=== PATIENT | female | born 1970 | race African-American/Black ===

== ENCOUNTER 2017-07-17 11:15 | Inpatient (IN) | payer OTHER ==
[2017-07-17 12:13] VITALS: BMI 30.5
--- NOTE | 2017-07-18 06:06 | HP ---
DATE OF ADMISSION: 07/18/2017 CHIEF COMPLAINT: Menorrhagia to anemia. HISTORY OF PRESENT ILLNESS: This is a 47-year-old G4, P4 with menorrhagia to anemia, history of mul tiple transfusions over the last 12 years, has never been treated for menorrhagia; however, only jose e been seen in the ER. She recently was started on Lysteda as well as referred to Hematology for IV iron and her recent hemoglobin was 13 up from 5 upon initial assessment on this and the patient sta tatianna she feels much better and desires definitive management with hysterectomy. She also desires ova frank removal secondary to additional problems from the ovaries. This patient has had problems in e past. CURRENT MEDICATIONS: Ferrous sulfate 325 mg p.o. t.i.d., Lysteda 650 mg 2 p.o. t.i.d. p.r.n., Valtr ex 500 mg 1 p.o. daily. PAST MEDICAL HISTORY: Anemia and multiple transfusions. GYNECOLOGIC HISTORY: No abnormal paps. History of HSV. PAST SURGICAL HISTORY: Prior x3, laparoscopic cholecystectomy. [employer]CE[employer] HISTORY: G4, P4 including 1 vaginal delivery and 3 C-sections. SOCIAL HISTORY: Negative x3. ALLERGIES: No known drug allergies. FAMILY HISTORY: Chronic hypertension. PHYSICAL EXAMINATION: VITAL SIGNS: Blood pressure 110/62, pulse is 72, respirations 16, weight is 167. BMI is 30.5. GENERAL: No acute distress. CARDIAC: Regular rate and rhythm. LUNGS: Clear to auscultation bilaterally. ABDOMEN: Soft, nontender, nondistended. EXTREMITIES: No edema, cyanosis, or clubbing. PELVIC: Deferred to OR. from 07/2016 shows essentially 10-week sized uterus, otherwise no abnormalities. The patient on exam has a tender uterus approximately 12 weeks size. ASSESSMENT AND PLAN: A 47-year-old G4, P4, with menorrhagia to anemia, pelvic pain, and desiring de finitive management with hysterectomy. EMB is benign and the patient continues to bleed past oral c ontraceptives. She has been counseled on the risk of surgery to include bleeding, transfusion that will occur for 1 unit of PRBCs prior to the surgery, infection, damage to surrounding structures inc luding bowel, bladder, ureter, blood vessels, nerves, and conversion to open procedure as well. Allison shell understands and wishes to proceed. She will follow up with me in 2 weeks postoperative time.
[2017-07-18] MEDS ORDERED: CEFAZOLIN/Water 2 GM/20 ML SYRINGE ONE (09:21)
[2017-07-18] MEDS ORDERED: Bupivacaine PF 0.5% 30 ML VIAL ONE (10:11)
[2017-07-18] MEDS ORDERED: Midazolam HCl 2 mg/2 ml Vial ONE (10:26)
[2017-07-18] MEDS ORDERED: Fentanyl 100 MCG/2 ML VIAL ONE ×2 (10:26→13:36)
[2017-07-18] MEDS ORDERED: Ondansetron HCl/PF 4 MG/2 ML Vial ONE (10:39)
[2017-07-18] MEDS ORDERED: Propofol 200 MG/20 ML VIAL ONE (10:39)
[2017-07-18] MEDS ORDERED: Lidocaine 2% PF 10 ML AMP (For Epidural Use) ONE (10:39)
[2017-07-18] MEDS ORDERED: Glycopyrrolate 0.2 MG/ML 5 ML SYRINGE ONE (10:39)
[2017-07-18] MEDS ORDERED: Ketorolac Tromethamine 30 MG/ML VIAL ONE (10:39)
[2017-07-18] MEDS ORDERED: HYDROcodone/Acetaminophen 5/325 mg Tablet PO PRN (13:21)
[2017-07-18] MEDS ORDERED: Zolpidem Tartrate 5 MG TAB PO PRN (13:21)
[2017-07-18] MEDS ORDERED: Acetaminophen 325 MG TAB PO PRN (13:21)
[2017-07-18] MEDS ORDERED: Bisacodyl 10 MG SUPP PR PRN (13:21)
[2017-07-18] MEDS ORDERED: Promethazine HCl 25 MG/ML VIAL IM PRN (13:21)
[2017-07-18] MEDS ORDERED: Simethicone Chewable 80 MG TAB PO PRN (13:21)
[2017-07-18] MEDS ORDERED: diphenhydrAMINE 25 MG CAP PO PRN (13:21)
[2017-07-18] MEDS ORDERED: Ondansetron HCl/PF 4 MG/2 ML Vial IVP PRN (13:21)
--- NOTE | 2017-07-18 14:23 | OP ---
DATE OF OPERATION: 07/18/2017 PREOPERATIVE DIAGNOSES: 1. Menorrhagia to anemia. 2. Pelvic pain. POSTOPERATIVE DIAGNOSES: 1. Menorrhagia to anemia. 2. Pelvic pain. 3. Dense intra-abdominal adhesive disease. PROCEDURE: Robotic assisted total laparoscopic hysterectomy, bilateral salpingo -oophorectomy, and extensive lysis of adhesions and McCalls Culdoplasty ANESTHESIA: General endotracheal. ATTENDING SURGEON: Ellie Beltran M.D. PROFESSIONAL NURSING TUTOR: Ney Hess M.D. ESTIMATED BLOOD LOSS: 50 mL. INTRAVENOUS FLUIDS: One liter crystalloid. URINE OUTPUT: 200 mL of clear urine. COMPLICATIONS: None. DRAINS: Moreira catheter. PATHOLOGY: Uterus, cervix, bilateral fallopian tubes and ovaries. FINDINGS: On exam under anesthesia, a 12-14 week size uterus that was mobile. Cervix is normal appearing. Uterus sounded to 11 cm. The uterus was densely adherent to the anterior abdominal wall as well as bilateral pelvic sidewalls and the bladder was densely adherent to the lower uterine segment and lysis of adhesions was performed for approximately 45 minutes. To ensure integrity of the bladder, the bladder was back filled multiple times throughout the case with saline and no inadvertent bladder injuries were encountered. Fallopian tubes and ovaries were normal appearing; however, were also contained in the adhesions. OPERATIVE TECHNIQUE: The patient was taken to the operating room where general anesthesia was obtained without difficulty. The patient was prepped and draped in a sterile fashion in the dorsal lithotomy position. A Moreira catheter was placed in the bladder. A speculum was placed in the vagina. Anterior lip of the cervix was grasped with a single tooth tenaculum. The uterus is sounded to 11 cm and the CORDELIA manipulator was assembled with a 10 cm tip and a 4 cm colpotomizer ring. The cervix was then progressively dilated with Matt dilators. The CORDELIA tip was then inserted to the uterine fundus. The tip balloon was inflated. Instruments were removed out of the vagina. The 4 cm colpotomizer ring was again fit snuggly around the cervix and vaginal occluder balloon was inflated and placed in a low lithotomy, attention was turned to the abdomen. An incision approximately 1 cm superior to the umbilicus was made that was 12 mm and the Veress needle was passed into the abdomen noting an opening pressure of 3 mmHg. Pneumoperitoneum was obtained without difficulty. Veress needle was removed and the 12 mm trocar was passed into the abdomen confirming placement with the robotic camera. Steep Trendelenburg was obtained and the above findings were noted. The right and left lower quadrant robotic 8 mm trocars were placed after infiltrating with 0.5% Marcaine. Under direct visualization the right upper quadrant infertility medical assistant port 11 mm port was placed under direct visualization as well after infiltrating with anesthetic. The robot was undocked. The right robotic arm contained the monopolar scissors, left robotic arm contained the fenestrated bipolar. The omental adhesions to the anterior abdominal wall were then layered out and cauterized and incised with the scissors, releasing them. There were initially filmy adhesions from the uterus to the anterior abdominal wall that were transparent that were taken down with scissors on cautery. This was carried around the top portion of the adhesions; however, there were adhesions from the top of the uterus all the way down to the bladder. The left fallopian tube and ovary were contained in these adhesions to the pelvic sidewall; however, these were easily freed up noting transparent tissue and then incising with the scissors. The infundibulopelvic ligament on the left side was noted. The fallopian tube was grasped and elevated. The ureter was identified running medially and posteriorly to the IP. The IP was then cauterized multiple times and transected. This was carried down. The mesovarium was then incised after cauterizing with the fenestrated with the scissors and this was taken down to the round ligament. This was in a bed of adhesions and therefore the planes in spaces were developed bluntly with the fenestrated pushing and spreading, the round ligament was identified and clamped across cauterized multiple times and transected. This did open up some other potential spaces that were able to easily push and spread to identify vital structures as well as taking down the anterior leaf of the broad ligament. The adhesions then to the anterior abdominal wall from the uterus were taken down providing countertraction on the uterus and is trying to stay below the anterior abdominal wall to avoid inadvertent injury to the bladder. There was a dense portion of the adhesions that was encountered on the anterior surface that was above the lower uterine segment and this was carefully incised most likely leaving some uterine tissue on the anterior abdominal wall, again to avoid inadvertent injury to structures in the anterior abdominal wall. Once the dense portion had been severed through the filmy fibers were again spaces were developed using pushing and spreading, traction, countertraction and incising with the scissors where transparency was noted. If transparency was not noted then layering out and careful dissection was performed. This was carried around down to the inferior portion of the uterus as well as the left pelvic sidewall. The right fallopian tube and ovary were then grasped and elevated. The IP was identified. The ureter was also identified on the right. IP was cauterized multiple times, transected and carried down to the mesovarium that was cauterized and transected maintaining hemostasis carefully. The round ligament was then identified. The additional taking down of the adhesions was performed incising the filmy fibers and then identifying the round ligament on the right side. This was cauterized and transected and the adhesions were taken down to the level of the bladder flap. The bladder was back filled and the bladder was noted to be densely adherent to the lower uterine segment. Therefore, careful layering and cold scissor dissection was performed. The vessels on the right side were skeletonized and cauterized and the pubocervical fascia was able to be identified on the right side and a window was identified and a tissue plane underneath the bladder adhesions. This allowed for additional carefully layering as well as using traction countertraction on the adhesion and irrigating. The bladder dissection took approximately 20 additional minutes of lysis of adhesion and intermittent bladder backfilling was performed to rule out a cystotomy. Once the bladder had been completely taken down the pubocervical fascia was visualized and the vessels on the left side were skeletonized, cauterized and transected. Colpotomy was performed and carried around maintaining hemostasis with the fenestrated on the vaginal cuff. The uterus was then removed out of the abdomen and into the vagina and hemostasis was achieved of the cuff. Irrigation was performed and hemostasis was also achieved of the dissection site of the anterior abdominal wall with the fenestrated. The vaginal cuff was closed with a 2.0 Stratafix suture in a running fashion incorporating the vaginal mucosa and posterior peritoneum with excellent hemostasis. The patient did have some apical prolapse and therefore a Mills's coloplasty was incorporated into the closure of the cuff including grabbing bilateral uterosacral ligaments and some posterior cul-de-sac peritoneum. The ureters were identified bilaterally peristalsing and did not appear to be in any way compromised from this procedure. Irrigation was again performed of the pelvis. Cathie powder was placed over all the dissection sites and pedicles with excellent hemostasis. All instruments were removed out of the abdomen. The robot was undocked. Pneumoperitoneum was released. The fascia of the umbilical port was closed with an 0 Vicryl in a running fashion. Skin was closed with 4-0 Monocryl in subcuticular fashion. Dermabond was applied. The patient tolerated the procedure well. Sponge, lap, and needle counts were correct x2. The patient was taken to recovery room in stable condition. SADIE
[2017-07-18] MEDS: Lactated Ringer's 1,000 ML IV SCH ×2 (15:18→21:50)
[2017-07-18] MEDS: Ketorolac Tromethamine 30 MG/ML VIAL IVP SCH (17:39)
[2017-07-18] MEDS: HYDROcodone/Acetaminophen 5/325 mg Tablet PO PRN (21:49)
[2017-07-18] MEDS: Docusate (Surfak) 240 MG CAP PO SCH (21:51)
[2017-07-19] MEDS: Ketorolac Tromethamine 30 MG/ML VIAL IVP SCH ×2 (00:31→05:58)
[2017-07-19 05:57] LABS: Hematocrit 34.6 % (36.0-47.0); Mean Platelet Volume 10.2 fL (7.4-10.4); Red Blood Cell (RBC) Count 4.04 mill/uL (4.20-5.40); White Blood Cell (WBC) Count 5.6 thou/uL (4.8-10.8)
[2017-07-19] MEDS: Lactated Ringer's 1,000 ML IV SCH (06:01)
[2017-07-19] MEDS ORDERED: Ibuprofen 800 MG TAB PO SCH (09:00)
[2017-07-19] MEDS: Docusate (Surfak) 240 MG CAP PO SCH (09:01)
[2017-07-19] MEDS: HYDROcodone/Acetaminophen 5/325 mg Tablet PO PRN ×2 (09:02→14:49)
--- NOTE | 2017-07-19 09:30 | PRG ---
DATE OF SERVICE: 07/19/2017 TIME: Approximately 9:00 a.m. SUBJECTIVE: The patient overnight has done well. She ambulated and voided last night without diffi culty. Her pain is currently 4/10, she has taken Jackson dose x1 and been on scheduled Toradol. She has no nausea, vomiting, tolerating a regular diet, and has no signs or symptoms of anemia. OBJECTIVE: VITAL SIGNS: Pulse is 76, temperature 98.3, respirations 20, blood pressure 108/62. Intake 1165 an d output not accurately measured secondary to spontaneous voiding. GENERAL: No acute distress. HEART: Regular rate and rhythm. LUNGS: Clear to auscultation bilaterally. ABDOMEN: Soft, appropriately tender, nondistended. Incisions are clean, dry, and intact. EXTREMITIES: No edema, cyanosis or clubbing. LABORATORY DATA: Hemoglobin 11.2, hematocrit 34.6, platelets 166. ASSESSMENT AND PLAN: This is a 47-year-old status post robotic-assisted hysterectomy, bilateral wili pingo-oophorectomy and lysis of adhesions, doing well. Vital signs are stable. Afebrile, meeting a ppropriate postoperative milestones and is on track for discontinue today. Prescriptions will inclu de Jackson 5/325, and ibuprofen 800 mg. She has been given ER warnings and restrictions of no heavy l ifting and pelvic rest and will follow up with me in 2 weeks postoperative time. Final pathology is pending at the time of discharge.
[2017-07-19 12:17] VITALS: BP 111/62; TEMP 98.1
== END 2017-07-19 14:52 | disposition home or self-care (01) | DRG 743 ==
LOC: SURG A 07-18 08:02 → 3SE 07-18 13:32
PROVIDERS: ADMIT Student in an Organized Health Care Education/Training Program; ATTEND Student in an Organized Health Care Education/Training Program
PROC: 8E0W4CZ Robotic Assisted Procedure of Trunk Region, Percutaneous Endoscopic Approach (ICD-10-PCS; principal; 2017-07-18)
PROC: 0UT94ZZ Resection of Uterus, Percutaneous Endoscopic Approach (ICD-10-PCS; 2017-07-18)
PROC: 0UT24ZZ Resection of Bilateral Ovaries, Percutaneous Endoscopic Approach (ICD-10-PCS; 2017-07-18)
PROC: 0UTC4ZZ Resection of Cervix, Percutaneous Endoscopic Approach (ICD-10-PCS; 2017-07-18)
PROC: 0UT74ZZ Resection of Bilateral Fallopian Tubes, Percutaneous Endoscopic Approach (ICD-10-PCS; 2017-07-18)
PROC: 0DNW4ZZ Release Peritoneum, Percutaneous Endoscopic Approach (ICD-10-PCS; 2017-07-18)
PROC: 0TNB4ZZ Release Bladder, Percutaneous Endoscopic Approach (ICD-10-PCS; 2017-07-18)
PROC: 0UQF4ZZ Repair Cul-de-sac, Percutaneous Endoscopic Approach (ICD-10-PCS; 2017-07-18)
DX: N92.0 Excessive and frequent menstruation with regular cycle (principal); N32.89 Other specified disorders of bladder; B00.9 Herpesviral infection, unspecified; K66.0 Peritoneal adhesions (postprocedural) (postinfection)
CPT/HCPCS: 36415; 85027; 88307; J1885; J2001; J2250; J2405; J2704; J3010; S0020

== ENCOUNTER 2017-07-17 11:30 | Outpatient (CLI) | payer OTHER ==
[2017-07-17 13:09] LABS: #Eosinphils 0.1 thou/uL (0.0-0.7); #Lymphocytes 1.5 thou/uL (1.20-3.40); #Monocytes 0.5 thou/uL (0.11-0.59); #Neutrophils 2.7 thou/uL (1.40-6.50); %Basophils 0.8 % (0.0-1.0); %Eosinophils 2.2 % (0.0-10.0); %Lymphocytes 30.5 % (21.0-51.0); %Monocytes 10.1 % (0.0-10.0); Hematocrit 41.5 % (36.0-47.0); Mean Platelet Volume 6.6 fL (7.4-10.4); Red Blood Cell (RBC) Count 4.75 mill/uL (4.20-5.40); White Blood Cell (WBC) Count 4.8 thou/uL (4.8-10.8)
== END 2017-07-17 11:31 | disposition home or self-care (01) ==
LOC: LABBT 11:30
PROVIDERS: ATTEND Student in an Organized Health Care Education/Training Program
DX: Z01.812 Encounter for preprocedural laboratory examination (principal); N92.0 Excessive and frequent menstruation with regular cycle; D64.9 Anemia, unspecified; R10.2 Pelvic and perineal pain
CPT/HCPCS: 85025; 86850; 86900; 86901

== ENCOUNTER 2019-08-24 09:58 | Emergency (ER) | payer BC, SELFPAY ==
[2019-08-24] MEDS ORDERED: Metoclopramide HCl 10 MG TAB ONE (11:35)
== END 2019-08-24 12:00 | disposition home or self-care (01) ==
LOC: ERS 09:58
DX: J11.1 Influenza due to unidentified influenza virus with other respiratory manifestations (principal); D64.9 Anemia, unspecified
CPT/HCPCS: 87804; 99283

== ENCOUNTER 2019-08-27 11:43 | Inpatient (IN) | payer BC ==
--- NOTE | 2019-08-27 12:26 | RAD ---
EXAM: Single view of the chest HISTORY: Chest pain COMPARISON: 07/25/2016 FINDINGS: Single view of the chest shows a normal sized cardiomediastinal silhouette. There is no heron dence of consolidation, mass, or pleural effusion. The bones are unremarkable. IMPRESSION: No evidence of acute cardiopulmonary disease
[2019-08-27 12:33] LABS: Mean Corpuscular HGB CONC 33.7 g/dL (32.0-36.0); Mean Corpuscular Volume 83.1 fL (78.0-98.0); Mean Platelet Volume 8.9 fL (7.4-10.4); Platelet Count 237 thou/uL (130-400); RBC Distribution Width 12.9 % (11.5-14.5); Red Blood Cell (RBC) Count 6.42 mill/uL (4.20-5.40); White Blood Cell (WBC) Count 3.3 thou/uL (4.8-10.8)
[2019-08-27] MEDS ORDERED: Diltiazem 125 MG/25 ML ONE (12:37)
[2019-08-27] MEDS ORDERED: Magnesium 2 GM/50 ML BAG (IN WATER) ONE (12:37)
[2019-08-27 12:51] LABS: Lactic Acid 2.7 mmol/L (0.5-2.2)
[2019-08-27 12:54] LABS: Band 4 % (5-11); Lymphocytes 58 % (21-51); MDiff Complete? YES; Monocytes 9 % (0-10); Neutrophil 26 % (42-75); RBC Morphology Normal; Reactive Lymphocytes 3 % (0-10)
[2019-08-27 12:56] LABS: ALT (SGPT) 22 U/L (8-55); AST (SGOT) 33 U/L (5-34); Alkaline Phosphatase 123 U/L (40-110); Anion Gap 17 mmol/L (10-20); BUN (Urea Nitrogen) 19 mg/dL (7.0-18.7); Bilirubin, Total 0.5 mg/dL (0.2-1.2); CK (CPK) 222 U/L (29-168); Calc. Creatinine Clearance 0 mL/min (70-130); Calcium 9.9 mg/dL (7.8-10.44); Carbon Dioxide 20 mmol/L (22-29); Chloride 101 mmol/L (98-107); Estimated GFR-MDRD 71; Globulin 4.3 g/dL (2.4-3.5); Glucose 103 mg/dL (70-105); Potassium 3.6 mmol/L (3.5-5.1); Protein, Total 8.3 g/dL (6.0-8.3); Sodium 134 mmol/L (136-145)
[2019-08-27 17:33] VITALS: BMI 38.7
[2019-08-27] MEDS ORDERED: Senokot S 8.6-50 MG TAB PO PRN (17:38)
[2019-08-27] MEDS ORDERED: Ondansetron PF 4 MG/2 ML Vial IVP PRN (17:38)
[2019-08-27] MEDS ORDERED: Bisacodyl 10 MG SUPP PR PRN (17:38)
[2019-08-27] MEDS ORDERED: Acetaminophen 325 MG TAB PO PRN (17:38)
[2019-08-27] MEDS ORDERED: HYDROcodone/Acetaminophen 5/325 mg Tablet PO PRN (17:38)
[2019-08-27] MEDS ORDERED: Diltiazem 125 MG in Sodium Chloride 0.9% 100 ML IVPB SCH (17:45)
[2019-08-27] MEDS ORDERED: Sodium Chloride 0.9% 1,000 ML IV SCH (17:45)
--- NOTE | 2019-08-27 18:11 | HP ---
REASON FOR ADMISSION: New onset atrial fibrillation with RVR. HISTORY OF PRESENTING ILLNESS: The patient gives history of having multiple fainting episodes yesterday and today. She fell in her backyard yesterday in the afternoon. She fell backwards and hit her lower back when she fell. She has been feeling dizzy ever since. This morning when the patient started to mobilize, she could barely manage to walk 1 to 2 minutes, prior to which she felt blurry, ringing in the ears and extreme dizziness and had to sit down. This was associated with shortness of breath and palpitations. The patient has not had any prior cardiac stress test. No complaints of fever. Has had some myalgias. She is not sure if she took a flu shot. No complaints of cough or expectoration. No complaints of rheumatologic diseases including sarcoid. PAST MEDICAL AND SURGICAL HISTORY: History of prior severe iron deficiency anemia due to menorrhagia. She has had hysterectomy done in 2017, x3, left ring finger surgery, history of pulmonary hypertension. She is not sure how they diagnosed this. She has not had an angiogram in the past. She is known to have heart murmur, but she does not recall what it is. CURRENT MEDICATIONS: The patient does not take any medications now. ALLERGIES: NO KNOWN DRUG ALLERGIES. PERSONAL HISTORY: Does not abuse alcohol or drugs. No history of smoking. FAMILY HISTORY: Mother is living. She is healthy. Father when she was 4 years old and does not know the cause of his . CODE STATUS: Full. Power of title attorney is her , Mr. Danny Adrian. REVIEW OF SYSTEMS: CONSTITUTIONAL: Negative for weight loss or gain, ability to conduct usual activities. SKIN: Negative for rash, itching. EYES: Negative for double vision, pain. ENT/MOUTH: Negative for nose bleeding, neck stiffness, pain, tenderness. CARDIOVASCULAR: Negative for palpitations, dyspnea on exertion, orthopnea. RESPIRATORY: Negative for shortness of breath, wheezing, cough, hemoptysis, fever or night sweats. GASTROINTESTINAL: Negative for poor appetite, abdominal pain, heartburn, nausea , vomiting, constipation, or diarrhea. GENITOURINARY: Negative for urgency, frequency, dysuria, nocturia. MUSCULOSKELETAL: Negative for pain, swelling. NEUROLOGIC/PSYCHIATRIC: Negative for anxiety, depression. ALLERGY/IMMUNOLOGIC: Negative for skin rash, bleeding tendency. PHYSICAL EXAMINATION: GENERAL: The patient is a 49-year-old female, who is currently not in any acute distress. VITAL SIGNS: Blood pressure 116/70, pulse 110 per minute, respiratory rate 18 per minute, temperature 98.8 degrees Fahrenheit, and saturating 98% on room air. NECK: Supple. No elevated JVD. HEENT: Eyes; extraocular muscles intact. Pupils reacting to light. Oral cavity, mucous membranes are dry. No exudates or congestion. CARDIOVASCULAR SYSTEM: S1 and S2 heard, irregular rhythm. RESPIRATORY SYSTEM: Air entry 1+ bilateral. Scattered rhonchi plus no rales or wheezes. ABDOMEN: Soft. Bowel sounds heard. No tenderness, rigidity, or guarding. EXTREMITIES: No peripheral edema or calf tenderness. VASCULAR SYSTEM: Peripheral pulses 1+ bilateral. No ischemic ulcerations or gangrene. CENTRAL NERVOUS SYSTEM: No gross focal deficits noted. The patient is alert, awake, and oriented well. PSYCHIATRIC SYSTEM: The patient's mood is euthymic. No hallucinations or delusions. LABORATORY DATA: EKG done shows atrial fibrillation with RVR at 131 beats per minute. White count of 3.3, H and H 18 and 53, platelet count 237, MCV is 83 with 26% neutrophils, 4% bands, and 58% lymphocytes. Electrolytes stable. Serum bicarb is 20, BUN 19, creatinine 1.0, lactic acid 2.7, serum glucose 103. Liver enzymes, AST and ALT within normal limits. Alkaline phosphatase is 123. CK level is 222. First set of troponin is negative. Albumin is 4.0. Chest x-ray done shows no acute cardiopulmonary abnormality. CLINICAL IMPRESSION AND PLAN: The patient will be admitted to telemetry for new onset atrial fibrillation with rapid ventricular response. She will be on aspirin 81 mg daily, Lovenox 80 mg q.12, Cardizem drip 5 mg an hour, and normal saline at 50 mL per hour. We will also add Lopressor 25 mg twice daily. Echo with 2D Doppler to rule out thrombus and for LV function. We will also obtain influenza screen in view of reversal of neutrophil and lymphocytes on the differential. We will obtain consultation with Dr. Smalls for Cardiology. The patient has known history of pulmonary hypertension in the past, which she says she has had it for last 7 or 8 years and had does not know how it was diagnosed nor has she had any regular followups with the same. We will see what her RVSP is on the echo. The patient likely might have underlying obstructive sleep apnea leading up to pulmonary hypertension. We will continue to closely monitor her on telemetry. Job ID: [id number] MTDD
[2019-08-27] MEDS ORDERED: Metoprolol Tartrate 25 MG TAB PO SCH (21:00)
[2019-08-27] MEDS: Famotidine 20 MG TAB PO SCH (21:42)
[2019-08-27] MEDS: Docusate Calcium (SURFAK) 240 MG CAP PO SCH (21:42)
[2019-08-27] MEDS: Enoxaparin Sodium 80 MG/0.8 ML SYRINGE SC SCH (21:42)
[2019-08-27] MEDS ORDERED: Sodium Chloride 0.9% 500 ML IV SCH ×2 (23:15→23:45)
[2019-08-28] MEDS: Guaifenesin DM 100-10/5 ML UDCUP PO PRN ×2 (00:21→20:27)
[2019-08-28] MEDS ORDERED: Sodium Chloride 0.9% 500 ML IV SCH (01:15)
[2019-08-28] MEDS ORDERED: FLU VACC QS2019-20(6MOS UP)/PF 60 MCG/0.5 ML SYRINGE IM ONE (09:00)
[2019-08-28] MEDS ORDERED: Metoprolol Tartrate 25 MG TAB ONE (09:01)
[2019-08-28] MEDS: Aspirin 81 mg Enteric Coated Tablet PO SCH ×2 (09:05→13:46)
[2019-08-28] MEDS: Docusate Calcium (SURFAK) 240 MG CAP PO SCH ×3 (09:05→20:20)
[2019-08-28] MEDS: Famotidine 20 MG TAB PO SCH ×3 (09:05→20:28)
[2019-08-28] MEDS: Enoxaparin Sodium 80 MG/0.8 ML SYRINGE SC SCH ×3 (09:05→20:27)
[2019-08-28 13:43] LABS: Hemoglobin 14.6 g/dL (12.0-16.0); Mean Corpuscular HGB CONC 32.9 g/dL (32.0-36.0); Mean Corpuscular Hemoglobin 28.4 pg (27.0-31.0); Mean Corpuscular Volume 86.3 fL (78.0-98.0); Mean Platelet Volume 9.1 fL (7.4-10.4); Platelet Count 157 thou/uL (130-400); Red Blood Cell (RBC) Count 5.14 mill/uL (4.20-5.40); White Blood Cell (WBC) Count 2.3 thou/uL (4.8-10.8)
[2019-08-28 14:13] LABS: Band 4 % (5-11); Lymphocytes 71 % (21-51); MDiff Complete? YES; Monocytes 5 % (0-10); Neutrophil 17 % (42-75); RBC Morphology Normal; Reactive Lymphocytes 3 % (0-10)
--- NOTE | 2019-08-28 14:38 | PDOC.HOSPP ---
- Subjective Encounter Date: 08/28/19 (f/u a fib with rvr) Encounter Time: 14:36 Subjective: 49 y/o female now on HD 2 for atrial fibrillation with rapid ventricular response. Pt reports feeling better, but still having some dizziness. Denies n/v/chest pain. diltiazem was d/c at 23:00 due to hypotension and bradycardia - Objective Vital Signs & Weight: Vital Signs (12 hours) Temp Pulse Resp BP Pulse Ox 08/28/19 13:55 98.1 F 70 16 91/57 L 96 08/28/19 08:03 97.9 F 94 16 106/66 97 Weight Weight 211 lb 11.2 oz Result Diagrams: 08/28/19 07:03 08/28/19 07:03 EKG Reviewed by me: Yes (tele - a fib with rate 70-80's and 2.7 pause) Hospitalist ROS - Medication Medications: Active Medications Generic Name Dose Route Start Last Admin Trade Name Freq PRN Reason Stop Dose Admin Hydrocodone Bitart/Acetaminophen 1 tab 08/27/19 17:38 08/27/19 19:23 [place] 5/325 PO 1 tab Q4H PRN Administration Moderate Pain (4-6) Aspirin 81 mg 08/28/19 09:00 08/28/19 13:46 Ecotrin PO Not Given DAILY [facility] Docusate Calcium 240 mg 08/27/19 21:00 08/28/19 13:46 [place] PO Not Given BID MISSY Enoxaparin Sodium 80 mg 08/27/19 21:00 08/28/19 13:46 Lovenox SC Not Given 0900,2100 [facility] Famotidine 20 mg 08/27/19 21:00 08/28/19 13:46 Pepcid PO Not Given BID MISSY Guaifenesin/Dextromethorphan 15 ml 08/27/19 17:38 08/28/19 00:21 Robitussin Dm PO 15 ml Q4H PRN Administration Cough Diltiazem HCl 125 mg/ Sodium 125 mls @ 5 mls/hr 08/27/19 17:45 08/27/19 19:22 Chloride IVPB 125 mls INF MISSY Administration Protocol 5 MG/HR Ondansetron HCl 4 mg 08/27/19 17:38 08/28/19 01:18 Zofran IVP 4 mg Q6H PRN Administration Nausea/Vomiting Sodium Chloride 10 ml 08/27/19 21:00 08/28/19 13:47 Flush - Normal Saline IVF Not Given Q12HR MISSY - Exam General Appearance: NAD Heart: no murmur, no gallops, no rubs, irregular Respiratory: CTAB, no wheezes, no rales, no ronchi Gastrointestinal: soft, non-tender, non-distended, normal bowel sounds Extremities: no cyanosis, no clubbing, no edema Psychiatric: normal affect Hosp A/P (1) Atrial fibrillation Code(s): I48.91 - UNSPECIFIED ATRIAL FIBRILLATION Status: Acute (2) Obesity Code(s): E66.9 - OBESITY, UNSPECIFIED Status: Acute Qualifiers: Obesity classification: adult class 2 (BMI 35 - 39.9) (3) Leukopenia Code(s): D72.819 - DECREASED WHITE BLOOD CELL COUNT, UNSPECIFIED Status: Acute - Plan rate controlled - awaiting echo and Cardiology consultation - on low dose aspirin and full dose lovenox, continue for now pending cardiology eval Leukopenia - uncertain of baseline for patient -continue to monitor here will need outpatient follow-up in 2 weeks to repeat/compare and consideration of referral to Cancer Center. (Pt has been seen in this clinic in the past for severe iron deficiency anemia) dvt prophy - on full dose lovenox as above gi prophy - not indicated code status full reviewed plan of care with patient, no questions or further needs at end of eval.
[2019-08-28 17:54] LABS: Anion Gap 8 mmol/L (10-20); BUN (Urea Nitrogen) 13 mg/dL (7.0-18.7); Calc. Creatinine Clearance 141 mL/min (70-130); Calcium 8.4 mg/dL (7.8-10.44); Carbon Dioxide 26 mmol/L (22-29); Chloride 107 mmol/L (98-107); Estimated GFR-MDRD Greater than 90; Glucose 99 mg/dL (70-105); Potassium 3.5 mmol/L (3.5-5.1); Sodium 137 mmol/L (136-145)
--- NOTE | 2019-08-29 00:39 | CON ---
DATE OF CONSULTATION: 08/28/2019 INDICATION FOR CONSULTATION: A 49-year-old female with episode of syncope on Monday and is being seen now due to atrial fibrillation with rapid ventricular response with treatment of diltiazem and then became bradycardic. HISTORY OF PRESENT ILLNESS: This very unfortunate 49-year-old female presented to the emergency room on Monday, complaining of not feeling well and was told that she probably had the flu. She had a nasal swab performed and was sent home. After she went home, she did have a syncopal episode and then she did not return to the emergency room until yesterday when she started feeling worse and felt like she would pass out every time she got up and she presented to the emergency room. There, it was thought that she might be dehydrated some, but also was found to be in atrial fibrillation with rapid ventricular response. She was started on IV diltiazem and then she had episodes of bradycardia and now this medication has been stopped and she still remains in atrial fibrillation with a heart rate in the 60s and 70s. She had also been on metoprolol. This also has subsequently been DC'd. At this time, she denied any chest pain. She has been somewhat short of breath and having a cough over the last several days after she had acquired the flu, she did not receive a flu shot. PAST MEDICAL HISTORY: Significant for iron-deficiency anemia, but this appears to have resolved. It was due to severe menorrhagia and she had a hysterectomy and since that time she has been stable. She has also had a history of some finger surgery. There was some mention of some pulmonary hypertension, but she had an echocardiogram today and that it not seen on the echocardiogram today. MEDICATION: She was on no previous medications prior to admission. At this time, her medications include; 1. Lovenox 80 mg twice a day. 2. Pepcid. 3. Other p.r.n. medications. ALLERGIES: NONE. SOCIAL HISTORY: She is . She has no alcohol or tobacco abuse. She works. FAMILY HISTORY: Her grandmother had myocardial infarction at a young age, but she did not understand why. Otherwise, there has been no early family history of heart disease. REVIEW OF SYSTEMS: A 12-point review of systems really unremarkable, except what was noted in the history of present illness. PHYSICAL EXAMINATION: GENERAL: Reveals a well-developed, well-nourished, somewhat overweight female. VITAL SIGNS: She is afebrile, blood pressure is 118/71, heart rates in the 70s and 80s and shows atrial fibrillation, respiratory rate is 16, and O2 saturation is 97%. HEENT EXAMINATION: Shows the head to be normocephalic and atraumatic. Carotid pulses are present. There are no significant bruits noted. CHEST: Has some scattered rhonchi. There is no wheezing noted. ABDOMEN: Obese with positive bowel sounds. No organomegaly or masses are noted. EXTREMITIES: Femoral pulses are present. Extremities show no clubbing, cyanosis, or edema. Pedal pulses are present. NEUROLOGIC: She appears to be fully intact. There were no gross focal motor deficits noted. LABORATORY FINDINGS: EKG showed, as noted atrial fibrillation with rapid ventricular response without any significant ST-segment changes to indicate ischemia. She did have further rhythm strips which showed significant bradycardia with some pauses associated with atrial fibrillation and pauses, bradycardia around 1130 last night with a 2.7-second pause and today being off the diltiazem, it appears to be in the 60s and 70s continuously. Otherwise, her laboratory data shows sodium of 134, potassium 3.6, blood sugar was 103, and creatinine is 1.01. Her troponin I was negative. Her hemoglobin is 14.6, WBC of 2.3, and platelet count of 157,000. IMPRESSION: 1. Atrial fibrillation with rapid ventricular response, which then subsequently became bradycardic with IV diltiazem. At this time, the heart rate is under good control. She has been placed on Lovenox. I would certainly continue the Lovenox. It is uncertain as to when the atrial fibrillation started. There is no indication that she had atrial fibrillation when she was in the emergency room on Monday. However, there was no EKG performed. It is unclear as to when it started. We would anticoagulate her for at least 2 to 3 weeks since she has minimal risk factors for developing atrial thrombus and her CHADS-VASC score is low, 0 to 1, very low probability of her having any acute events. We may opt for an early cardioversion of this patient after a LATISHA, if she remains stable. Otherwise, should she become unstable, then she may need to undergo cardioversion sooner than later. Most likely, this is exacerbated by her recent illness with the flu-like illness. We will be more than happy to continue to follow her. She did have an echocardiogram performed which showed a normal left ventricular systolic function with mild mitral and tricuspid valve regurgitation as well as mild aortic and pulmonary valve regurgitation. There was no evidence of any indication of pulmonary hypertension. Job ID: [id number]
[2019-08-29 05:11] LABS: Hemoglobin 13.8 g/dL (12.0-16.0); Mean Corpuscular HGB CONC 33.2 g/dL (32.0-36.0); Mean Corpuscular Hemoglobin 28.3 pg (27.0-31.0); Mean Corpuscular Volume 85.2 fL (78.0-98.0); Mean Platelet Volume 8.5 fL (7.4-10.4); Platelet Count 132 thou/uL (130-400); RBC Distribution Width 12.7 % (11.5-14.5); Red Blood Cell (RBC) Count 4.87 mill/uL (4.20-5.40); White Blood Cell (WBC) Count 2.2 thou/uL (4.8-10.8)
[2019-08-29 05:24] LABS: Anion Gap 10 mmol/L (10-20); BUN (Urea Nitrogen) 10 mg/dL (7.0-18.7); Calc. Creatinine Clearance 148 mL/min (70-130); Calcium 8.5 mg/dL (7.8-10.44); Carbon Dioxide 24 mmol/L (22-29); Chloride 109 mmol/L (98-107); Estimated GFR-MDRD Greater than 90; Glucose 97 mg/dL (70-105); Potassium 3.2 mmol/L (3.5-5.1); Sodium 140 mmol/L (136-145)
[2019-08-29 05:37] LABS: Band 1 % (5-11); Lymphocytes 69 % (21-51); MDiff Complete? YES; Monocytes 5 % (0-10); Neutrophil 11 % (42-75); RBC Morphology Normal; Reactive Lymphocytes 14 % (0-10)
[2019-08-29] MEDS: Enoxaparin Sodium 80 MG/0.8 ML SYRINGE SC SCH ×2 (08:45→21:10)
[2019-08-29] MEDS: Famotidine 20 MG TAB PO SCH ×2 (08:46→21:10)
[2019-08-29] MEDS: Aspirin 81 mg Enteric Coated Tablet PO SCH (08:46)
[2019-08-29] MEDS: Docusate Calcium (SURFAK) 240 MG CAP PO SCH ×2 (08:50→21:11)
[2019-08-29] MEDS ORDERED: Dronedarone HCl 400 MG TAB PO SCH (11:00)
[2019-08-29] MEDS ORDERED: Artificial Tear Sol 15 ML BOT EA EYE PRN (11:41)
--- NOTE | 2019-08-29 11:45 | PDOC.CPN ---
- Subjective Date: 08/29/19 Time: 11:49 Interval history: The pt seen and examined. No overnight events. No cardiac complaints. - Objective Allergies/Adverse Reactions: Allergies Allergy/AdvReac Type Severity Reaction Status Date / Time No Known Allergies Allergy Verified 08/27/19 18:43 Visit Medications: Current Medications Acetaminophen (Tylenol) 650 mg PO Q4H PRN PRN Reason: Headache/Fever/Mild Pain (1-3) Hydrocodone Bitart/Acetaminophen ([place] 5/325) 1 tab PO Q4H PRN PRN Reason: Moderate Pain (4-6) Last Admin: 08/27/19 19:23 Dose: 1 tab Artificial Tears (Liquitears 15ml Bottle) 2 drop EA EYE QID PRN PRN Reason: Dry Eyes Aspirin (Ecotrin) 81 mg PO DAILY [facility] Last Admin: 08/29/19 08:46 Dose: 81 mg Bisacodyl (Dulcolax) 10 mg ND DAILYPRN PRN PRN Reason: Constipation Docusate Calcium (Surfak) 240 mg PO BID [facility] Last Admin: 08/29/19 08:50 Dose: Not Given Dronedarone (Multaq) 400 mg PO BID-[facility] Dronedarone (Multaq) 400 mg PO NOW [facility] Stop: 08/29/19 13:00 Enoxaparin Sodium (Lovenox) 80 mg SC 0900,2100 [facility] Last Admin: 08/29/19 08:45 Dose: 80 mg Famotidine (Pepcid) 20 mg PO BID [facility] Last Admin: 08/29/19 08:46 Dose: 20 mg Guaifenesin/Dextromethorphan (Robitussin Dm) 15 ml PO Q4H PRN PRN Reason: Cough Last Admin: 08/28/19 20:27 Dose: 15 ml Senna/Docusate Sodium (Senokot S) 2 tab PO BID PRN PRN Reason: Constipation Sodium Chloride (Flush - Normal Saline) 10 ml IVF Q12HR [facility] Last Admin: 08/29/19 08:45 Dose: Not Given Sodium Chloride (Flush - Normal Saline) 10 ml IVF PRN PRN PRN Reason: Saline Flush Vital Signs & Weight: Vital Signs Temp Pulse Resp BP Pulse Ox 08/29/19 08:35 98.5 F 82 16 103/69 94 L 08/29/19 03:00 98.5 F 82 14 122/63 96 08/29/19 00:00 81 125/72 Admit Weight 211 lb 11.2 oz Weight 211 lb 11.2 oz - Physical Exam HEENT: mucus membranes moist Neck: supple neck Cardiac: irregularly regular Lungs: clear to auscultation - Labs Result Diagrams: 08/29/19 04:01 08/29/19 04:01 Troponin/CKMB Troponin I Less than 0.010 ng/mL (< 0.028) 08/27/19 12:03 - Telemetry Supraventricular conduction: atrial fibrillation - Assessment/Plan Assessment/Plan: 1. Afib with RVR - well controlled HR: Multaq was started from this AM; if she cont Afib until tomorrow, possible LAITSHA/Cardioversion tomorrow or continue rate control and OAC for 2-4 weeks and then try to cardiovert. Will reassess in AM.; 2. Obese MAR reviewed * Echo on 08/28/2019 with EF 55-60%, mild MR and AR, and mild-mod TR and ND Pt. seen and eval. by me. I agree with the A/P by the NONFARM ANIMAL CARETAKER. She may convert with the Multaq. Continue lovenox. If she does not convert after 2-3 doses of Multaq then plan to cardiovert. Her CHADS-Vasc score is low and she should be a reasonable candidate to cardiovert.
--- NOTE | 2019-08-29 15:45 | PDOC.HOSPP ---
- Subjective Subjective: Seen and examined. Patient breathing well on room air. Patient does not feel palpitations with her atrial fibrillation/flutter. Patient's only complaint is that her eyes have felt dry and irritated in red. Will add artificial tears to help with eye irritation Cardiology discussing options of cardioversion versus medical therapy for atrial fibrillation/flutter. - Objective Vital Signs & Weight: Vital Signs (12 hours) Temp Pulse Resp BP Pulse Ox 08/29/19 11:57 98.3 F 86 16 120/71 95 08/29/19 08:35 98.5 F 82 16 103/69 94 L Weight Admit Weight 211 lb 11.2 oz Weight 211 lb 11.2 oz I&O: 08/28/19 08/29/19 08/30/19 06:59 06:59 06:59 Intake Total 1400 Balance 1400 Result Diagrams: 08/29/19 04:01 08/29/19 04:01 Radiology Reviewed by me: Yes Hospitalist ROS - Review of Systems All other systems reviewed; all pertinent +/- noted in HPI/Subj - Medication Medications: Active Medications Generic Name Dose Route Start Last Admin Trade Name Freq PRN Reason Stop Dose Admin Hydrocodone Bitart/Acetaminophen 1 tab 08/27/19 17:38 08/27/19 19:23 [place] 5/325 PO 1 tab Q4H PRN Administration Moderate Pain (4-6) Aspirin 81 mg 08/28/19 09:00 08/29/19 08:46 Ecotrin PO 81 mg DAILY [facility] Administration Docusate Calcium 240 mg 08/27/19 21:00 08/29/19 08:50 Surfak PO Not Given BID [facility] Enoxaparin Sodium 80 mg 08/27/19 21:00 08/29/19 08:45 Lovenox SC 80 mg 0900,2100 [facility] Administration Famotidine 20 mg 08/27/19 21:00 08/29/19 08:46 Pepcid PO 20 mg BID [facility] Administration Guaifenesin/Dextromethorphan 15 ml 08/27/19 17:38 08/28/19 20:27 Robitussin Dm PO 15 ml Q4H PRN Administration Cough Sodium Chloride 10 ml 08/27/19 21:00 08/29/19 08:45 Flush - Normal Saline IVF Not Given Q12HR MISSY - Exam General Appearance: NAD, awake alert Eye: PERRL ENT: normocephalic atraumatic, moist mucosa Neck: supple, symmetric, no lymphadenopathy Heart: no murmur, no gallops, no rubs, irregular Respiratory: CTAB, no wheezes, no rales, no ronchi Gastrointestinal: soft, non-tender, non-distended, no guarding, no rigidity Extremities: no edema Skin: no lesions, no rashes Neurological: cranial nerve grossly intact, no focal deficits Musculoskeletal: generalized weakness Psychiatric: normal affect, A&O x 3 Hosp A/P (1) Atrial fibrillation Code(s): I48.91 - UNSPECIFIED ATRIAL FIBRILLATION Status: Acute (2) Leukopenia Code(s): D72.819 - DECREASED WHITE BLOOD CELL COUNT, UNSPECIFIED Status: Acute (3) Obesity Code(s): E66.9 - OBESITY, UNSPECIFIED Status: Acute Qualifiers: Obesity classification: adult class 2 (BMI 35 - 39.9) (4) Atypical chest pain Code(s): R07.89 - OTHER CHEST PAIN Status: Acute (5) Anemia Code(s): D64.9 - ANEMIA, UNSPECIFIED Status: Chronic Qualifiers: Anemia type: iron deficiency Iron deficiency anemia type: chronic blood loss Qualified Code(s): D50.0 - Iron deficiency anemia secondary to blood loss (chronic) (6) Hypovitaminosis D Code(s): E55.9 - VITAMIN D DEFICIENCY, UNSPECIFIED Status: Chronic (7) Perimenopausal menorrhagia Code(s): N92.4 - EXCESSIVE BLEEDING IN THE PREMENOPAUSAL PERIOD Status: Chronic - Plan Plan: medical unit telemetry cardiology consultation, recommendations appreciated may benefit from cardioversion for new onset atrial fibrillation IV anticoagulation will convert to oral anticoagulation on discharge medical therapy for atrial fibrillation has been tried, diltiazem drip resulting in bradycardia blood pressure control blood sugar control artificial tears for dry eye DVT prophylaxis on IV and coagulation with Lovenox G.I. prophylaxis
[2019-08-29] MEDS: Dronedarone HCl 400 MG TAB PO SCH (18:09)
[2019-08-30] MEDS: Enoxaparin Sodium 80 MG/0.8 ML SYRINGE SC SCH (08:55)
[2019-08-30] MEDS: Aspirin 81 mg Enteric Coated Tablet PO SCH (08:55)
[2019-08-30] MEDS: Docusate Calcium (SURFAK) 240 MG CAP PO SCH (08:56)
[2019-08-30] MEDS: Famotidine 20 MG TAB PO SCH (08:57)
[2019-08-30 11:48] VITALS: BP 115/63; TEMP 98.8
[2019-08-30] MEDS: Dronedarone HCl 400 MG TAB PO SCH (11:49)
--- NOTE | 2019-08-30 12:44 | PDOC.CPN ---
- Subjective Date: 08/30/19 Time: 12:47 Interval history: The pt seen and examined. No overnight events. No cardiac complaints - Objective Allergies/Adverse Reactions: Allergies Allergy/AdvReac Type Severity Reaction Status Date / Time No Known Allergies Allergy Verified 08/27/19 18:43 Visit Medications: Current Medications Acetaminophen (Tylenol) 650 mg PO Q4H PRN PRN Reason: Headache/Fever/Mild Pain (1-3) Hydrocodone Bitart/Acetaminophen ([place] 5/325) 1 tab PO Q4H PRN PRN Reason: Moderate Pain (4-6) Last Admin: 08/27/19 19:23 Dose: 1 tab Artificial Tears (Liquitears 15ml Bottle) 2 drop EA EYE QIDPRN PRN PRN Reason: Dry Eyes Aspirin (Ecotrin) 81 mg PO DAILY [facility] Last Admin: 08/30/19 08:55 Dose: 81 mg Bisacodyl (Dulcolax) 10 mg [place] DAILYPRN PRN PRN Reason: Constipation Docusate Calcium (Surfak) 240 mg PO BID [facility] Last Admin: 08/30/19 08:56 Dose: Not Given Dronedarone (Multaq) 400 mg PO BID-[facility] Last Admin: 08/30/19 11:49 Dose: 400 mg Enoxaparin Sodium (Lovenox) 80 mg SC 0900,2100 [facility] Last Admin: 08/30/19 08:55 Dose: 80 mg Famotidine (Pepcid) 20 mg PO BID [facility] Last Admin: 08/30/19 08:57 Dose: 20 mg Guaifenesin/Dextromethorphan (Robitussin Dm) 15 ml PO Q4H PRN PRN Reason: Cough Last Admin: 08/28/19 20:27 Dose: 15 ml Senna/Docusate Sodium (Senokot S) 2 tab PO BID PRN PRN Reason: Constipation Sodium Chloride (Flush - Normal Saline) 10 ml IVF Q12HR [facility] Last Admin: 08/30/19 08:57 Dose: 10 ml Sodium Chloride (Flush - Normal Saline) 10 ml IVF PRN PRN PRN Reason: Saline Flush Vital Signs & Weight: Vital Signs Temp Pulse Resp BP BP Pulse Ox 08/30/19 11:46 98.8 F 70 16 115/63 98 08/30/19 08:49 98.0 F 83 16 108/67 98 12/06/19 08:00 98 08/30/19 03:15 97.9 F 70 14 120/69 97 Admit Weight 211 lb 11.2 oz Weight 213 lb 3 oz - Physical Exam General: alert & oriented x3 HEENT: mucus membranes moist Neck: supple neck Cardiac: irregularly regular Lungs: clear to auscultation - Labs Result Diagrams: 08/29/19 04:01 08/29/19 04:01 Troponin/CKMB Troponin I Less than 0.010 ng/mL (< 0.028) 08/27/19 12:03 - Telemetry Supraventricular conduction: atrial fibrillation - Assessment/Plan Assessment/Plan: 1. Afib with RVR - well controlled HR with Multaq; will start Eliquis; she will be d/harish home with Eliquis and Multaq sample and will f/u with Dr Vargas' office next Monday or Monday; if she cont. Afib, plan for LATISHA/DCCV 2. Obese MAR reviewed * Echo on 08/28/2019 with EF 55-60%, mild MR and AR, and mild-mod TR and OK * From Cardiac standpoint, the pt is stable to d/c home. * she will be d/harish home with Eliquis and Multaq sample and will f/u with Dr Vargas' office next Monday or Monday; if she cont. Afib, plan for LATISHA/DCCV Pt. seen and eval. I agree with the A/P by the PIPE ORGAN MECHANIC. Continue the Multaq and Eliquis until seen next week in ht e office. Chest clear. Irreg/irreg.
[2019-08-30] MEDS ORDERED: Apixaban 5 MG TAB PO SCH (21:00)
--- NOTE | 2019-08-31 15:23 | DIS ---
DATE OF ADMISSION: 08/27/2019 DATE OF DISCHARGE: 08/30/2019 REASON FOR HOSPITALIZATION: Syncopal episode. SIGNIFICANT FINDINGS: The patient found to be in atrial fibrillation with rapid ventricular response. PROCEDURES PERFORMED AND TREATMENTS RENDERED: The patient was admitted to the medical unit with telemetry for close management. The patient had consultation by Cardiology - please see full consultation and progress notes for details. Please see full history and physical from display specialist for full details. The patient was initially placed on titratable drip for heart rate control. However, this resulted in bradycardia and required cessation. The patient's atrial fibrillation medications were titrated appropriately by Cardiology with good improvement of symptoms. No further episodes of syncope, palpitations, chest pain, or any other symptoms were observed while acute hospitalization. Cardiology recommended the patient is safe for discharge home on current medications which were selected by Cardiology including Multaq (dronedarone and Eliquis) for oral anticoagulation. These medications were sent to her preferred pharmacy. CONDITION ON DISCHARGE: Stable. SPECIFIC INSTRUCTIONS FOR THE PATIENT AND FAMILY: 1. The patient is recommended to take medications as directed by Cardiology. 2. The patient is recommended to follow up with Cardiology on Monday or Monday in the outpatient clinic with Dr. Vargas. 3. The patient is recommended to follow up with primary care physician in the next 5 to 7 days. 4. The patient is recommended to return to acute care hospital immediately if signs or symptoms return, worsen, or any other new symptoms occur. DISCHARGE MEDICATIONS: 1. Apixaban 5 mg one tablet p.o. b.i.d. 2. Multaq 400 mg one tablet p.o. b.i.d. 3. All other home medications were continued without changes. Greater than 35 minutes spent coordinating care and discharge process for this patient. Job ID: [id number]
== END 2019-08-30 14:20 | disposition home or self-care (01) | DRG 310 ==
LOC: ERS 11:43 → 2NO 17:12
PROVIDERS: ADMIT Internal Medicine; ATTEND Internal Medicine
DX: I48.91 Unspecified atrial fibrillation (principal); D50.0 Iron deficiency anemia secondary to blood loss (chronic); E55.9 Vitamin D deficiency, unspecified; N92.4 Excessive bleeding in the premenopausal period; I27.20 Pulmonary hypertension, unspecified; I08.3 Combined rheumatic disorders of mitral, aortic and tricuspid valves; E66.9 Obesity, unspecified; D72.819 Decreased white blood cell count, unspecified; I95.9 Hypotension, unspecified; R00.1 Bradycardia, unspecified; T46.1X5A Adverse effect of calcium-channel blockers, initial encounter; Z68.39 Body mass index [BMI] 39.0-39.9, adult; Z90.710 Acquired absence of both cervix and uterus
CPT/HCPCS: 36415; 71045; 80048; 80053; 82550; 83605; 84443; 84484; 85025; 87804; 93005; 93306; 96361; 96374; 99283; J1650; J2405; J3475; J3490

== ENCOUNTER 2019-09-18 19:10 | Emergency (ER) | payer BC ==
[2019-09-18] MEDS ORDERED: Metoclopramide HCl 10 MG/2 ML VIAL ONE (20:35)
[2019-09-18] MEDS ORDERED: diphenhydrAMINE 50 MG/ML VIAL ONE (20:35)
--- NOTE | 2019-09-18 20:55 | CT ---
CT OF BRAIN PERFORMED WITHOUT CONTRAST ENHANCEMENT: 09/18/19 HISTORY: Left sided pulsatile headache. COMPARISON: 06/16/13 study. Ventricular and cisternal system is within normal limits. There is no signs of intracerebral hemorrha ge or extra-axial fluid collections. The mastoid air cells and visualized sinuses are clear. IMPRESSION: No acute intracranial abnormalities. POS: [facility]
== END 2019-09-18 22:08 | disposition home or self-care (01) ==
LOC: ERS 19:10
DX: R51 Headache (principal)
CPT/HCPCS: 70450; 96365; 96375; J1200; J2765

== ENCOUNTER 2023-08-29 02:54 | Emergency (ER) | payer SELFPAY ==
[2023-08-29] MEDS ORDERED: predniSONE 20 MG TAB ONE (03:25)
[2023-08-29 04:22] LABS: SARS-CoV-2 NAA Rapid Test Not Detected (NotDetected)
== END 2023-08-29 03:40 | disposition home or self-care (01) ==
LOC: ERS 02:54
DX: B34.9 Viral infection, unspecified (principal); I10 Essential (primary) hypertension; I27.20 Pulmonary hypertension, unspecified
CPT/HCPCS: 93005; J7512